=== PATIENT | male | born 1995 | race African-American/Black ===

== ENCOUNTER 2020-05-16 14:15 | Outpatient (RCR) | payer OTHER, SELFPAY ==
--- NOTE | 2020-06-07 16:33 | MHC.PT.DC ---
[place] [facility] [place] [facility] [place] [facility] [address] [phone] F: [phone] F: [phone] F: [phone] F: [phone] Physical Therapy Discharge Report Diagnosis: R hip pain Date of Surgery: NA Date of Evaluation: 03/16/20 Date of Discharge: 06/07/20 Treatments to Date: 11 Cancellations to Date: 0 No Shows to Date: 2 Discharge Status: Physician Discontinued Tx Discharge Summary: 06/07/20- Pt was referred to PT for R hip pain but pt was presenting with signs and symptoms suggestive of possible nerve damage. Pt followed up with PCP due to persistent foot drop and other symptoms. He was advised to stop PT until further investigations. Pt therefore elected to stop PT. Electronically signed by: Mariaelena Blackman DPT Please sign and return to therapist. Thank you for your referral.
== END 2020-06-07 16:35 | disposition other institution (70) ==
LOC: HO.PT 14:15
PROVIDERS: Visit Provider Physician Assistant
DX: M25.551 Pain in right hip (principal)
CPT/HCPCS: 97110; 97112